=== PATIENT | male | born 1975 | race Caucasian/White ===

== ENCOUNTER 2018-03-30 15:52 | Emergency (ER) | payer BC, OTHER ==
--- NOTE | 2018-03-30 16:13 | CPEKG ---
Heart Rate: 82 RR Interval: 732 P-R Interval: 148 QRSD Interval: 118 QT Interval: 368 QTC Interval: 430 P Bulverde: 73 QRS Bulverde: 84 T Wave Bulverde: -19 EKG Severity - ABNORMAL ECG - EKG Impression: SINUS RHYTHM EKG Impression: INCOMPLETE RIGHT BUNDLE BRANCH BLOCK EKG Impression: BORDERLINE ST DEPRESSION, LATERAL LEADS Electronically Signed By: Olman Lawson 30-Mar-2018 21:43:45
--- NOTE | 2018-03-30 16:25 | EDPHY ---
H & P Stated Complaint: CP Time Seen by Provider: 03/30/18 16:24 - Personal History Current Tetanus/Diphtheria Vaccine: Yes - Medical/Surgical History Hx Asthma: No Hx Chronic Respiratory Disease: No Hx Diabetes: No Hx Cardiac Disease: No Hx Renal Disease: No Hx Cirrhosis: No Hx Alcoholism: No Other PMH: Pre-hypertension - Social History Smoking Status: Never smoked Constitutional: Initial Vital Signs Temperature (C) 36.6 C 03/30/18 15:59 Heart Rate 88 03/30/18 15:59 Respiratory Rate 16 03/30/18 15:59 Blood Pressure 160/91 H 03/30/18 15:59 O2 Sat (%) 100 03/30/18 15:59 O2 Delivery Mode Room Air Allergies/Adverse Reactions: No Known Allergies Allergy (Unverified 03/30/18 16:03) Home Medications: Medication Instructions Recorded Benicar 20 mg (*) 03/30/18 Medical Decision Making ED Course/Re-evaluation: CHIEF COMPLAINT: Chest tightness, left arm numbness HISTORY OF PRESENT ILLNESS: This patient is a 42 year-old male with history of pre-hypertension complaining of chest pain. Over the past 1.5-2 weeks, he has felt as though he is unable to exert himself. He feels a "deep heartbeat, pulsing but not fast". He has had an associated sensation of tightness in his deltoid. Today, he noted numbness in left arm and back spasms. He endorses subtle shortness of breath. Has felt very stressed lately, and this exacerbates his symptoms. His symptoms generally last for about 10 minutes and recur throughout the day. This has been fairly constant over the past two weeks. The patient denies history of diabetes or hyperlipidemia. He is a non-smoker. He endorses history of atrial fibrillation in his brother and valve disease in his father and grandfather. No personal or family history of CAD. He denies fever, recent illness, recent trauma. REVIEW OF SYSTEMS: A 10 point review of systems was performed and is negative with the exception of the elements mentioned in the history of present illness. PHYSICAL EXAM: HR, BP, O2 Sat, RR. Temp noted General Appearance: Alert, well hydrated, appropriate, and non-toxic appearing. Head: Atraumatic without scalp tenderness or obvious injury Eyes: Pupils equal, round, reactive to light and accommodation, EOMI, no trauma , no injection. Ears: Clear bilaterally, no perforation, normal landmarks Nose: Atraumatic, no rhinorrhea, clear. Throat: There is no erythema or exudates, no lesions, normal tonsils, mucus membranes moist. Neck: Supple, 2+ carotid upstroke, nontender, no lymphadenopathy. Respiratory: No retractions, no distress, no wheezes, and no accessory muscle use. Lungs are clear to auscultation bilaterally. Cardiovascular: Regular rate and rhythm, no murmurs, rubs, or gallops. Bilateral carotid, radial, dorsalis pedis, and posterior tibial pulses intact. Good capillary refill all extremities. Gastrointestinal: Abdomen is soft, nontender, non-distended, no masses, no rebound, no guarding, no peritoneal signs. Musculoskeletal: Normal active ROM of all extremities, atraumatic. Neurological: Alert, appropriate, and interactive. The patient has normal DTRs and non-focal cranial nerves, motor, sensory, and cerebellar exam. Skin: No rashes, good turgor, no nodules on palpation. Past medical history: Pre-hypertension (Benicar) Past surgical history: Noncontributory Family history: Noncontributory. Social history: Nonsmoker. . Does not abuse drugs or alcohol. DIAGNOSTICS/PROCEDURES/CRITICAL CARE TIME: The 12 lead EKG was interpreted by myself. See hard copy and/or "tracemaster" electronic copy for interpretation. Sinus rhythm. Borderline ST depression in lateral leads. DIFFERENTIAL DIAGNOSIS: The differential diagnosis for the patient's chest pain included but was not limited to myocardial ischemia, pulmonary embolus, chest wall pain, pleural inflammation, and pulmonary infectious causes. MEDICAL DECISION MAKING: This patient is a 42 year old male complaining of intermittent chest discomfort ongoing for two weeks. Exam unremarkable. Plan for EKG, labs including POC troponin, CBC, chemistries, BNP. Plan to consult with on-call rewind operator. Plan for echocardiogram. If this is normal, plan to d/c for outpatient treadmill stress test and further cardiac workup. 16:[address] Spicer, rewind operator. He agrees with the plan for echocardiogram and outpatient follow up if this is normal. 16:50 Echo at bedside. 17:[address] Spicer, rewind operator. Echocardiogram is normal. Patient's HEART score is 2 due to his hypertension and non-specific repolarization abnormalities on EKG. Given this, he is at low risk for a major adverse cardiac event. Additionally, his echocardiogram is normal. Plan for discharge and outpatient followup as above. 17:20 Reassessed patient. Discussed results and followup. An order has been placed by cardiology for the patient's outpatient treadmill stress test. He will call tomorrow for an appointment. He is comfortable with this plan. - Data Points Laboratory Results: 03/30/18 03/30/18 03/30/18 16:11 16:09 16:09 WBC Pending RBC Pending Hgb Pending Hct Pending MCV Pending MCH Pending MCHC Pending RDW Pending Plt Count Pending MPV Pending Neut % (Auto) Pending Lymph % (Auto) Pending Calhoun % (Auto) Pending Eos % (Auto) Pending Baso % (Auto) Pending Nucleat RBC Rel Count Pending Absolute Neuts (auto) Pending Absolute Lymphs (auto) Pending Absolute Monos (auto) Pending Absolute Eos (auto) Pending Absolute Basos (auto) Pending Absolute Nucleated RBC Pending Immature Gran % Pending Immature Gran # Pending Sodium Pending Potassium Pending Chloride Pending Carbon Dioxide Pending Anion Gap Pending BUN Pending Creatinine Pending Estimated GFR Pending Glucose Pending Calcium Pending POC Troponin I 0.00 ng/mL ng/mL (0.00-0.08) NT-Pro-B Natriuret Pep Pending Point of Care Test Results: Chemistry 03/30/18 16:11 POC Troponin I 0.00 ng/mL ng/mL (0.00-0.08) Departure - Departure Disposition: Home, Routine, Self-Care Clinical Impression: Atypical chest pain Condition: Good Instructions: Chest Pain (ED) Additional Instructions: Follow-up with your primary doctor within 2-3 days. Follow up with a rewind operator for further testing, as soon as possible, within one week. We have referred you to our rewind operator wildlife conservationist. Please call tomorrow to schedule this appointment. The office can be reached at [phone]. Return to the Emergency Department for fever, chest pain, shortness of breath, increasing pain or other worsening of condition. Referrals: Rosas Hays MD [Primary Care Provider] - As per Instructions Tristan Spicer MD [Medical Doctor] - As per Instructions Report Scribed for: Olman Lawson Report Scribed by: Elvira Beal Date of Report: 03/30/18 Time of Report: 17:19
--- NOTE | 2018-03-30 17:20 | ECHO ---
[email or web address] [address] [address] Main: [phone] Fax: Transthoracic Echocardiogram Name: JERED SU MR#: [id number] Study Date: 03/30/2018 Study Time: 05:05 PM Date of : 1975 Age: 42 year(s) Height: 177.8 cm (70 in.) Weight: 79.38 kg (175 lb.) BSA: 1.97 m2 Gender: Male Examination: Echo Indication: Chest Pain Image Quality: Contrast: Requested by: Olman Lawson BP: / Heart Rate: Rhythm: Indication: Chest Pain Procedure Staff Ice Cream Dipper: Any Villeda NITA Reading Physician: Tristan Spicer MD Requesting Provider: Conclusions: Normal size left ventricle. No LV hypertrophy. Normal global systolic LV function. The ejection fraction is estimated to be 65-70 %. Trivial mitral valve regurgitation. The aortic valve is tri-leaflet. Trivial tricuspid valve regurgitation. The aorta is normal. Measurements: Chambers Valvular Assessment AV/MV Valvular Assessment TV/PV Normal Normal Normal Name Value Range Name Value Range Name Value Range Ao Yoli (MM): 3.6 cm (2.2 cm-3.7 AV Vmax: 1.21 m/s (1 m/s-1.7 cm) m/s) IVSd (2D): 0.7 cm (0.6 cm-1.1 AV maxP mmHg ( - ) cm) AV meanP mmHg ( - ) LVDd (2D): 5.3 cm (4.2 cm-5.9 MV E Vmax: 0.80 m/s ( - ) cm) MV A Vmax: 0.50 m/s ( - ) LVDs (2D): 3.3 cm (2.1 cm-4 MV E/A: 1.60 ( - ) cm) LVPWd (2D): 0.7 cm (0.6 cm-1 cm) LVEF (MOD4): 69 % (>=55 %) EF Range: 65-70 % Continued Measurements: Chambers Valvular Assessment AV/MV Name Value Name Value Patient: JERED SU Study Date: 03/30/2018 Page 1 of 2 05:05 PM LADs: 3.9 cm MV E/E' Septal: 9.10 LADs Lon.1 cm MV E/E' Lateral: 5.80 LA Area: 19.7 cm2 Findings: Left Ventricle: Normal size left ventricle. No LV hypertrophy. Normal global systolic LV function. The ejection fraction is estimated to be 65-70 %. No regional wall motion abnormality. Normal diastolic LV function. Right Ventricle: Normal size right ventricle. Left Atrium: The left atrium is normal in size. Right Atrium: The right atrium is normal in size. Mitral Valve: The mitral valve is normal in appearance and function. Trivial mitral valve regurgitation. Aortic Valve: The aortic valve is normal in appearance and function. The aortic valve is tri-leaflet. Tricuspid Valve: The tricuspid valve is normal in appearance and function. Trivial tricuspid valve regurgitation. Pulmonic Valve: Pulmonary valve not well visualized. Aorta: The aorta is normal. Pericardium: No pericardial effusion. (No Signature Object) Patient: JERED SU Study Date: 03/30/2018 Page 2 of 2 05:05 PM [id number]
[2018-03-30 17:36] LABS: PLATELET COUNT 271 10^3/uL (150-400)
[2018-03-30 18:04] VITALS: BP 122/73
== END 2018-03-30 18:03 | disposition home or self-care (01) ==
DX: R07.89 Other chest pain (principal)
CPT/HCPCS: 84484-PO